=== PATIENT | female | born 1945 | race Caucasian/White ===

== ENCOUNTER → 2017-11-11 | Outpatient (CLI) | END | disposition home or self-care (01) ==

== ENCOUNTER → 2017-12-23 | Outpatient (CLI) | END | disposition home or self-care (01) ==

== ENCOUNTER → 2018-01-20 | Outpatient (CLI) | END | disposition home or self-care (01) ==

== ENCOUNTER → 2018-02-07 | Outpatient (CLI) | END | disposition home or self-care (01) ==

== ENCOUNTER → 2018-02-07 | Outpatient (CLI) | END | disposition home or self-care (01) ==

== ENCOUNTER 2018-02-18 08:00 | Observation (INO) | payer MEDICARE, BC ==
[~2018-02-18] VITALS: Ht 154.9 cm; Wt 80.5 kg
[~2018-02-18 08:00] MED LIST: ACETAMINOPHEN 500 MG TAB PO ONE; CEFAZOLIN 2 GM/50 ML (PMX) 50 ML IVPB ONE; CELECOXIB 200 MG CAP PO ONE; DEXAMETHASONE 4 MG/ML 1 ML INJ IV ONE; LACTATED RINGER'S 1,000 ML IV* SCH; LANSOPRAZOLE 30 MG CAP PO ONE; ONDANSETRON 4 MG INJ IV ONE; TRANEXAMIC ACID 1,000 MG in SOD CHLORIDE 0.9% 100 ML IVPB ONE
[2018-07-21 18:43] VITALS: Ht 154.9 cm; Wt 80.5 kg
[2018-07-26] VITALS (33 sets, daily range): BP systolic 111–152; BP diastolic 51–75; PULSE 80–92; RESP 0–23
[2018-07-26] MEDS ORDERED: TRANEXAMIC ACID 1GM/100ML(PMX) 100 ML IVPB ONE (07:00)
[2018-07-26] MEDS ORDERED: CELECOXIB 200 MG CAP PO ONE (07:00)
[2018-07-26] MEDS ORDERED: CEFAZOLIN 2 GM/50 ML (PMX) 50 ML IVPB ONE (07:00)
[2018-07-26] MEDS ORDERED: ONDANSETRON 4 MG INJ IV ONE (07:00)
[2018-07-26] MEDS ORDERED: LANSOPRAZOLE 30 MG CAP PO ONE (07:00)
[2018-07-26] MEDS ORDERED: ACETAMINOPHEN 500 MG TAB PO ONE (07:00)
[2018-07-26] MEDS ORDERED: DEXAMETHASONE 4 MG/ML 5 ML INJ IV ONE (07:00)
[2018-07-26] MEDS ORDERED: ERGO2000 PO (07:13)
[2018-07-26] MEDS ORDERED: CALC500T11 PO (07:14)
[2018-07-26] MEDS ORDERED: MAGN200T PO (07:14)
[2018-07-26] MEDS ORDERED: ASCO500C7 PO (07:15)
[2018-07-26] MEDS ORDERED: MULTI PO (07:15)
[2018-07-26] MEDS ORDERED: OMEP20CA16 PO (07:16)
[2018-07-26] MEDS ORDERED: THIA250T7 PO (07:16)
[2018-07-26] MEDS ORDERED: PARO10TA57 PO (07:16)
[2018-07-26] MEDS ORDERED: TURM500C9 PO (07:17)
[2018-07-26] MEDS ORDERED: ZOLP5TAB PO (07:18)
[2018-07-26] MEDS ORDERED: ASPI81TA52 PO (07:18)
--- NOTE | 2018-07-26 07:18 | PREAC ---
Date/Time of Note Date/Time of Note DATE: 07/26/18 TIME: 07:17 Anesthesia Eval and Record Evaluation Time Pre-Procedure Interview DATE: 07/26/18 TIME: 07:17 Age 73 Sex female NPO: 8 hrs Preoperative diagnosis right knee osteoarthritis Planned procedure right knee replacement Past Medical History Past Medical History: Includes Cardio: Dyslipidemia Musculoskeletal: Osteoarthritis GI: GERD Heme: Other (thrombocytosis) Surgery & Anesthesia Issues No known issue Meds Anticoagulation: No Beta Hiwot within 24 hr: No Reason Beta Hiwot not given: Pt. not on B-Hiwot Reported Medications Paroxetine Hcl* (Paxil*) 10 Mg Tablet, 10 MG PO DAILY, TAB 07/26/18 Omeprazole* (Omeprazole*) 20 Mg Capsule.dr, 20 MG PO BID, #60 CAP 07/26/18 Thiamine* (Vitamin B-1*) 250 Mg Tablet, 250 MG PO DAILY, TAB 07/26/18 Multivitamins* (Theragran*) 1 Tab Tab, 1 TAB PO DAILY, TAB 07/26/18 Ascorbic Acid* (Vitamin C*) 500 Mg Capsule.sa, 1000 MG PO BID, CAP 07/26/18 Calcium Carbonate (Oysco-500) 500 Mg Tablet, 500 MG PO BID, TAB 07/26/18 Magnesium (Magnesium) 200 Mg Tablet, 600 MG PO DAILY, TAB 07/26/18 Ergocalciferol (Vitamin D2) (VITAMIN D2) 2,000 Unit Tablet, 2000 UNIT PO DAILY, TAB 07/26/18 Current Medications Ropivacaine/ Clonidine/ Epinephrine/ Ketorolac Tromethamine/ Sodium Chloride INTRA-OP INJ ; Start 07/26/18 at 07:00 Cefazolin Sodium/ Dextrose 50 ml @ 100 mls/hr PRE-OP ONCE IVPB ; Start 07/26/18 at 07:00; Stop 07/26/18 at 07:29 Tranexamic Acid 100 ml @ 200 mls/hr PRE-OP ONCE IVPB ; Start 07/26/18 at 07:00; Stop 07/26/18 at 07:29 Tranexamic Acid 100 ml @ 220 mls/hr AT CLOSING ONCE IVPB ; Start 07/26/18 at 07:00; Stop 07/26/18 at 07:27 Acetaminophen 100 ml @ 400 mls/hr OC IVPB Last administered on 07/26/18at 07:01; Admin Dose 400 MLS/HR; Start 07/26/18 at 07:30; Stop 07/26/18 at 07:44 Meds reviewed: Yes Allergies Coded Allergies: No Known Allergy (Verified , 07/26/18) Allergies Reviewed: Yes Labs/Studies Labs Reviewed: Reviewed by anesthesiologist test: N/A Studies: ECG Pre-procedure Exam Last vitals Vital Signs Date Temp Pulse Resp B/P (MAP) Pulse Ox O2 O2 Flow FiO2 Time Delivery Rate 07/26/18 98.1 07:01 07/26/18 84 18 141/75 98 06:40 (97) Airway: Adequate mouth opening, Adequate thyromental dist Mallampati: Mallampati II Teeth: Normal Lung: Normal Heart: Normal ASA Physical Status ASA physical status: 2 Emergency: None Planned Anesthetic General/MAC: LMA Neuraxial: Spinal Planned Pain Management Sub-arachniod narcotics, Parenteral pain med Pre-operative Attestations Prior to commencing anesthesia and surgery, the patient was re-evaluated, there was verification of: *The patient's identity *The results of appropriate recent lab work and preoperative vital signs *The above evaluation not changing prior to induction *Anesthetic plan, risk benefits, alternative and complications discussed with patient/family; questions answered; patient/family understands, accepts and wishes to proceed. LILY WADE MD Jul 26, 2018 07:18
[2018-07-26] MEDS ORDERED: ALPR0.25 PO (07:19)
--- NOTE | 2018-07-26 07:24 | HPN ---
Date/Time of Note Date/Time of Note DATE: 07/26/18 TIME: 07:23 Interval H&P Admission Note Pt. seen H&P reviewed: No system changes Patient denies fever, chills, shortness of breath, chest pain, nausea/vomiting, constipation, diarrhea, numbness, and tingling. MUSCULOSKELETAL: Right lower extremity Skin intact Sensation intact to light touch in a sural, saphenous, deep peroneal, superficial peroneal, medial and lateral plantar nerve distribution. Motor is intact, patient able to dorsiflex and plantarflex ankle and extend and flex great toe. Dorsalis Pedis pulse +2, Brisk capillary refill. Compartments are soft. Calves non-tender to palpation bilaterally. IRWIN ELMORE MD Jul 26, 2018 07:24
[2018-07-26] MEDS ORDERED: SEVOFLURANE 15 MIN ONE (07:30)
[2018-07-26] MEDS ORDERED: ACETAMINOPHEN 1000MG/100ML IV 100 ML IVPB SCH (07:30)
[2018-07-26] MEDS ORDERED: LIDOCAINE 2% (SDV) 5 ML INJ ONE (07:33)
[2018-07-26] MEDS ORDERED: PROPOFOL 20 ML ONE (07:33)
[2018-07-26] MEDS ORDERED: FENTAnyl 50 MCG/ML VIAL ONE (07:34)
[2018-07-26] MEDS ORDERED: MIDAZOLAM 1 MG/ML 2 ML INJ ONE (07:34)
[2018-07-26] MEDS ORDERED: TRANEXAMIC ACID 1GM/100ML(PMX) 100 ML ONE ×2 (07:48→12:12)
[2018-07-26] MEDS ORDERED: CEFAZOLIN 1 GM INJ ONE (07:48)
[2018-07-26] MEDS ORDERED: ONDANSETRON 4 MG INJ ONE (07:54)
[2018-07-26] MEDS ORDERED: DEXAMETHASONE 4 MG/ML 5 ML INJ ONE (07:54)
[2018-07-26] MEDS ORDERED: FAMOTIDINE 20 MG INJ ONE (07:54)
[2018-07-26] MEDS ORDERED: EPHEDrine 25 MG/5 ML SYG ONE (08:09)
[2018-07-26] MEDS: TRANEXAMIC ACID 1GM/100ML(PMX) 100 ML IVPB ONE ×2 (08:32→09:55)
[2018-07-26] MEDS ORDERED: ROPIVACAINE 0.2% 20 ML VIAL ONE (10:44)
[2018-07-26] MEDS ORDERED: ONDANSETRON 4 MG INJ IV PRN (11:00)
[2018-07-26] MEDS ORDERED: PROCHLORPERAZINE 10 MG INJ IV PRN (11:00)
[2018-07-26] MEDS ORDERED: HYDROmorphONE 1 MG/5 ML IV SYRINGE IV PRN ×2 (11:00)
[2018-07-26] MEDS ORDERED: MEPERIDINE 25 MG INJ IV PRN (11:00)
[2018-07-26] MEDS ORDERED: DIPHENHYDRAMINE 50 MG INJ IV PRN ×2 (11:00→11:30)
[2018-07-26] MEDS ORDERED: FENTAnyl 50 MCG/ML VIAL IV PRN (11:00)
[2018-07-26] MEDS ORDERED: LACTATED RINGER'S 1,000 ML IV SCH ×2 (11:14→11:22)
--- NOTE | 2018-07-26 11:19 | PAC ---
Date/Time of Note Date/Time of Note DATE: 07/26/18 TIME: 11:18 Post-Anesthesia Notes Post-Anesthesia Note Last documented vital signs Vital Signs Date Temp Pulse Resp B/P (MAP) Pulse Ox O2 O2 Flow FiO2 Time Delivery Rate 07/26/18 98.1 07:01 07/26/18 84 18 141/75 98 06:40 (97) Activity: WNL Respiratory function: WNL Cardiovascular function: WNL Mental status: Baseline Pain reasonably controlled: Yes Hydration appropriate: Yes Nausea/Vomiting absent: Yes Comments BP: 118/53 HR: 87 RR: 15 T: 98 SaO2: 95% LILY WADE MD Jul 26, 2018 11:19
[2018-07-26] MEDS ORDERED: DOCUSATE SODIUM 100 MG CAP PO ONE (11:30)
[2018-07-26] MEDS ORDERED: KETOROLAC 15 MG INJ IV PRN (11:30)
[2018-07-26] MEDS ORDERED: SENNA/DOCUSATE NA (8.6MG/50MG) TAB PO PRN (11:30)
[2018-07-26] MEDS ORDERED: MAGNESIUM HYDROXIDE 30ML CUP PO PRN (11:30)
[2018-07-26] MEDS ORDERED: NACL 0.9% 3 ML SYG IV SCH (11:30)
[2018-07-26] MEDS ORDERED: HYDROmorphONE 1 MG/ML SYG IV PRN (11:30)
[2018-07-26] MEDS ORDERED: BETHANECHOL 25 MG TAB PO PRN (11:30)
[2018-07-26] MEDS ORDERED: NALOXONE (0.4 MG/ML) INJ IV PRN (11:30)
[2018-07-26] MEDS ORDERED: BISACODYL 10 MG SUPP PR PRN (11:30)
[2018-07-26] MEDS ORDERED: NA PHOSPHATE/BIPHOS 133 ML ENEMA PR PRN (11:30)
[2018-07-26] MEDS ORDERED: oxyCODONE 5 MG TAB PO PRN ×2 (11:30)
--- NOTE | 2018-07-26 12:13 | OPR ---
Date/Time of Note Date/Time of Note DATE: 07/26/18 TIME: 12:02 Operative Report Procedure Date: Jul 26, 2018 Preoperative Diagnosis Right knee osteoarthritis Postoperative Diagnosis As above Operation/Procedure Performed right total knee arthroplasty Intraoperative use of navigation Surgeon see signature line Awake Overnight Monitor Lauri Warren Anesthesia Type: spinal Tourniquet Time: 90 Estimated Blood Loss: 10 - 50 ml's Transfusion none Specimen Hoffa fat pad Grafts/Implants Depuy Sigma Femur: size 2.5 PS Tibia: Size 2.5 Poly insert: size 2.5 PS+, 10 mm thickness Patella: 32mm Complications none Pt Condition Post Procedure: stable Disposition: PACU Procedure Description PREOP DIAGNOSIS: Right knee osteoarthritis POSTOP DIAGNOSIS: Same. SURGICAL PROCEDURE: Right total knee arthroplasty. Intraoperative use of navigation CPT CODE: 06874. INDICATIONS AND CONSENT: The patient is a 73 year-old woman, with an orthopaedic history consistent with progressively worsening knee pain. They have maximized nonoperative measures, which have included activity modification, medicines, intra-articular injections. On physical exam, they have varus alignment, no previous open surgical scars. They have ROM 3120, no gross ligamentous instability. No significant venous stasis or edema. Distally neurovascular intact. They were offered a knee replacement. A lengthy discussion ensued, where the patient was told that if and when the symptoms are intolerable, elective total knee replacement should be considered. The operative procedure was explained using diagrams and or three-dimensional models. The rehabilitation, the potential risks, benefits and alternatives were discussed at length. Specific risks discussed included but were not limited to excessive blood loss and the need for transfusion and therefore the risk of transmissible disease or transfusion reaction, deep infection and the potential need for repetitive debridements, implant removal, long-term antibiotic therapy, possibly requiring deep venous access, extensor mechanism complications, including subluxation or dislocation, disruption of the quadriceps or patellar t endon, fracture of the patella or avulsion of the tibial tuberosity, femoral, tibial or fibular fracture and the need for further surgery for fixation, neurovascular injury with temporary or permanent numbness, tingling, weakness or paralysis, arterial injury requiring surgery including possible amputation, deep venous thrombosis, pulmonary embolism and , persistent pain, weakness, or limp, late aseptic loosening and the need for revision, polyethylene wear- induced osteolysis and related problems, post-operative stiffness requiring closed manipulation, and finally, a wide variety of unanticipated medical problems. The opportunity to ask questions and address any concerns was provided. The patient elected to proceed with TKA. FINDINGS: Extensive and diffuse inflammation of the joint with synovial hypertrophy and synovitis. Significant hemosiderin deposition in the synovium as well as the Hoffa fat pad. Diffuse tricompartmental osteoarthritis with bicompartmental full-thickness cartilage loss. SURGERY IN DETAIL: Patient was taken into the Operating Room, placed supine on the operating table. Preoperatively, they were given weight-based dosing of Ancef and if MRSA positive vancomycin was given in addition. Tourniquet was placed to the right proximal thigh. Regional anesthesia was administered by Anesthesia Department. Right lower extremity was prepped and draped in sterile fashion. Surgical pause was performed, correctly identifying the patient's name, medical record number, diagnoses, surgical procedure, and laterality of procedure. The leg was elevated, exsanguinated with an Esmarch, tourniquet was inflated to 250 for mmHg, remained inflated for 90 minutes, after which it was deflated. An anterior midline incision approximately 15-20 cm in length was made, centered over the patella ending just medial to the tibial tubercle. Skin and subcutaneous tissue sharply dissected down the Armin's fascia superiorly, which was incised in line with skin incision. The quadriceps tendon, medial patellar retinaculum, patellar tendon were visualized. A medial parapatellar arthrotomy was performed. The proximal medial tibia was subperiosteally exposed for a distance of 4 cm from joint line. The deep infrapatellar bursa was incised. The patella was everted and the knee was flexed, while protecting the insertion of patellar tendon. A 3/8-inch curved osteotome was used to enter the semimembranosus bursa at the level of the joint line medially. Medial meniscus was excised at the meniscal- synovial junction. The anterior cruciate ligament was excised. The posterior cruciate ligament was excised with electrocautery from the intercondylar region and a posterior retractor was placed, subluxating the tibia anterolateral to the femur. A hernia was made anterolateral to the lateral meniscus and a right- angle retractor was placed over the anterolateral tibia. A lateral meniscectomy was performed. The inferior lateral geniculate artery was coagulated. The tibia was reduced under the femur. An intramedullary pin was placed for the OrthAlign device. The OrthAlign navigation unit and sensor were calibrated at the back table. The OrthAlign femoral cutting jig was then placed over the central pin, and secured with a medial and lateral pin. The OrthAlign navigation unit and OrthAlign sensor were then attached to the jig. The leg was maneuvered for appropriate capture and calibration. After this was performed, the navigation unit was adjusted for a 0 varus/valgus (neutral mechanical axis) and 2.0-2.5 degree posterior flexion cut. The cutting jig was locked in place. The navigation and sensor unit were then removed. The distal femoral cut was set at 10 mm for the osteotomy . This was then secured with two pins. A distal femoral osteotomy was performed. The OrthAlign femoral jig was then removed. A posterior retractor was placed and an anterolateral retractor was placed on the tibia, subluxating the tibia anterior to the femur. The OrthAlign tibial cutting jig was then applied to the tibia preliminarily with the strap. This was secured with two pins centered over the medial 1/3 of the tibial tubercle. The offset was established proximally at the ACL footprint. This was then matched distally. Registration was then performed, registering the lateral malleolus and the medial malleolus. After this was performed, the malleolar probe was then utilized to help set the appropriate varus/valgus as well as tibial slope. This was then locked into position. The navigation guide and sensor were then removed. The slotted tibial cutting jig was then applied and secured with two pins. A proximal tibia osteotomy was performed. The tibia was then brought to full extension and a 10 mm spacer block was inserted, and felt to be satisfactory extension gap. The knee was flexed again and the tibial alignment guide was then removed. With the knee flexed to 90 degrees a femoral sizing jig was placed on the distal femur and secured, the femur sized to a size 2.5. Due to preoperative varus deformity, this was then set on 3 degrees of empiric external rotation, using the posterior condyles. This was parallel to the epicondylar axis. A size 2.5 4-in-1 femoral cutting block was then secured to the femur with two lock pins and an anterior, posterior condylar cut were performed, followed by an anterior chamfer and a posterior chamfer cut. Cutting block was removed. A 10 mm spacer was then inserted at 90 degrees of flexion and this was symmetric with the extension gap. An intercondylar box osteotomy was performed using the box cutting guide. A trial tibial base plate, size 2.5 with a 10 mm cruciate sacrificing polyethylene, and a trial size 2.5 femur were then inserted and the knee was brought to full extension. The patella was everted and the osteochondral junction was exposed. The patella measured 32 mm in thickness. A patellar osteotomy performed leaving 12 mm remnant patella. Three lug holes were drilled for the 32 diameter patellar button. The knee then underwent range of motion, soft tissue tension and patellar tracking, everything was symmetric balanced. The patella tracked centrally. The rotation of the tibial component was marked on the tibia. On the tibia, the modular base plate hole was created with the appropriate drills and punches at previously marked rotation. Exposed bony surfaces were thoroughly irrigated and dried. Periarticular injection administered. Cement with antibiotics was mixed at the back table. At the appropriate time and consistency cement was placed in the keel and onto the tibial plateau. Cement was finger pressurized. Cement was placed on the backside of the tibial component and along the keel. The tibial component was placed by hand into the keel and was then impacted and extruded cement removed. Cement was applied to exposed bone of the femur, as well as the posterior condylar portion prostheses, and the femoral component was inserted, extruded cement was then removed. The knee was brought to full extension. Cement was applied to the patella, as well as the patellar button, which was clamped into position. Extruded cement was removed. After the cement completely dried, the knee was flexed, the trial polyethylene was removed. Scored cement was removed. A tourniquet was deflated. Hemostasis was obtained. Pulse lavage was used to irrigate and remove any loose debris from posterior knee. The knee was trialed with a 10 mm thick posterior stabilized polyethylene. I compared to previous mentation there was very subtle and slight laxity of the MCL and full extension. Otherwise the knee was balanced. There is no injury or damage to the MCL that could be appreciated. At this time it was felt a stabilized plus insert would help as the MCL was intact and was taught on examination.. A formal size 2.5, 10 mm stabilized plus polyethylene was inserted, confirmed seated and locked. The knee was reduced, hemostasis obtained. Copious amounts of irrigation was used with pulse lavage to remove and loose debris. The arthrotomy was closed with 1 PDS in a [id number], interrupted fashion, subcutaneous tissues irrigated, closed with 2-0 Vicryl in an inverted, interrupted fashion. The skin was closed with josse. A sterile dressing was applied. Sponge, needle and instrument counts were correct at the end of the case. DISPOSITION: Patient transferred to PACU in stable condition. The patient will be weight bearing as tolerated on the operative extremity. PT will begin POD #0 if available. Given the slight MCL laxity in extension the patient will be put in a hinged knee brace to protect the MCL until it fully heals back down to the tibia. She will be weightbearing as tolerated but when she weight bears she needs to wear the brace otherwise she does not need to wear the brace. Range of motion as tolerated. Postoperative AP and lateral of the operative knee will be ordered in PACU. Bilateral knee high SCDs will be worn while admitted. ASA 81mg BID will be given for DVT prophylaxis for 6 weeks. Pain will be controlled with medication. The patient will follow up in clinic in approximately 2 weeks. ESTIMATED BLOOD LOSS: 50 mL. CULTURES: None. PATHOLOGY: Bone, hoffa fat pad IMPLANTS: Depuy Sigma Femur: size 2.5 PS Tibia: Size 2.5 Poly insert: size 2.5 PS+, 10 mm thickness Patella: 32mm NAME OF SURGEONS AND ASSISTANTS: Surgeon: Irwin Saul MD Awake Overnight Monitor: IRWIN Giles MD Jul 26, 2018 12:12
[2018-07-26] MEDS: CEFAZOLIN 2 GM/50 ML (PMX) 50 ML IVPB SCH ×2 (12:20→22:10)
[2018-07-26] MEDS ORDERED: ALPRAZOLAM 0.25 MG TAB PO PRN (13:00)
[2018-07-26] MEDS ORDERED: ZOLPIDEM 5 MG TAB PO PRN (13:00)
--- NOTE | 2018-07-26 13:42 | CONS ---
Assessment/Plan Assessment/Plan Problems: (1) Anxiety disorder Status: Chronic Comment: Cont. xanax prn and zolpidem prn insomnia. 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 paroxetine 10 mg daily. (3) Gastro-esophageal reflux disease without esophagitis Status: Chronic Comment: Cont. PPI bid. (4) Essential thrombocytosis Status: Chronic Comment: Noted. Will apply this knowledge to any CBC done in house. Of note, platelets from outpatient labs not excessively elevated, only in the 550K range. (5) ADRIEL-2 gene mutation Status: Chronic Comment: Noted. (6) Hypertriglyceridemia Status: Chronic Comment: Noted TG level > 450 on outpatient labs. Will defer to primary team to decide if fibrate should be started as outpt. (7) Osteoarthritis of right knee Status: Resolved Comment: per primary team (8) Aftercare following right knee joint replacement surgery Status: Acute Comment: Doing well POD#0. Pain management and PT per primary team. Will raeann tor for any medical issues and treat should they arise. Consultation Date/Type/Reason Admit Date/Time Jul 26, 2018 at 05:39 Date of Consultation: Jul 26, 2018 Type of Consult Medicine Reason for Consultation Medical Management Requesting Provider: IRWIN ELMORE MD Date/Time of Note DATE: 07/26/18 TIME: 13:30 Hx of Present Illness 73 y/o C F w/o h/o anxiety d/o and GERD w/ progressively worsening pain from OA of R knee since arthroscopic surgery 10 y. ago. Lately has been severe enough that she cannot ambulate w/o pain. Came today for scheduled R TKA. Now POD#0 and doing well. Constitutional: no complaints, improved Eyes: no complaints ENT: no complaints Respiratory: no complaints Cardiovascular: no complaints Gastrointestinal: no complaints Genitourinary: no complaints Musculoskeletal: bone/joint pain (R knee) Neurologic: no complaints Past Medical History Medical History: GERD, other (anxiety, diverticulosis/perforation/peritonitis/colostomy, female climacteric state, essential thrombocytosis w/ ADRIEL-2 mutation) Home Meds Reported Medications Alprazolam* (Xanax*) 0.25 Mg Tablet, 0.25 MG PO Q8H PRN for ANXIETY, TAB 07/26/18 Aspirin (Low Dose Aspirin) 81 Mg Tablet.dr, 81 MG PO DAILY, #30 TAB 07/26/18 Zolpidem Tartrate* (Ambien*) 5 Mg Tablet, 2.5 MG PO QHS PRN for INSOMNIA, #30 TAB 07/26/18 Turmeric Root Extract (Turmeric) 500 Mg Capsule, 500 MG PO DAILY, CAP 07/26/18 Paroxetine Hcl* (Paxil*) 10 Mg Tablet, 10 MG PO DAILY, TAB 07/26/18 Omeprazole* (Omeprazole*) 20 Mg Capsule.dr, 20 MG PO BID, #60 CAP 07/26/18 Thiamine* (Vitamin B-1*) 250 Mg Tablet, 250 MG PO DAILY, TAB 07/26/18 Multivitamins* (Theragran*) 1 Tab Tab, 1 TAB PO DAILY, TAB 07/26/18 Ascorbic Acid* (Vitamin C*) 500 Mg Capsule.sa, 1000 MG PO BID, CAP 07/26/18 Calcium Carbonate (Oysco-500) 500 Mg Tablet, 500 MG PO BID, TAB 07/26/18 Magnesium (Magnesium) 200 Mg Tablet, 600 MG PO DAILY, TAB 07/26/18 Ergocalciferol (Vitamin D2) (VITAMIN D2) 2,000 Unit Tablet, 2000 UNIT PO DAILY, TAB 07/26/18 Medications Current Medications Hydromorphone HCl (Dilaudid) 0.2 mg PACU PRN IV MILD PAIN 1-3; Start 07/26/18 at 11:00; Stop 07/26/18 at 15:00 Hydromorphone HCl (Dilaudid) 0.4 mg PACU PRN IV MOD PAIN 4-6; Start 07/26/18 at 11:00; Stop 07/26/18 at 15:00 Fentanyl (Sublimaze) 25 mcg PACU ORDER PRN IV MILD PAIN 1-3; Start 07/26/18 at 11:00; Stop 07/26/18 at 15:00 Ondansetron HCl (Zofran Inj) 4 mg PACU ORDER PRN IV NAUSEA/VOMITING; Start 07/26/18 at 11:00; Stop 07/26/18 at 15:00 Prochlorperazine (Compazine Inj) 5 mg PACU ORDER PRN IV NAUSEA/VOMITING; Start 07/26/18 at 11:00; Stop 07/26/18 at 15:00 Meperidine HCl (Demerol) 25 mg PACU ORDER PRN IV .RIGORS; Start 07/26/18 at 11:00; Stop 07/26/18 at 15:00 Diphenhydramine HCl (Benadryl) 12.5 mg PACU ORDER PRN IV .PRURITUS; Start 07/26/18 at 11:00; Stop 07/26/18 at 15:00 Lactated Ringer's 1,000 ml @ 120 mls/hr Q8H20M IV Last administered on 07/26/18at 11:26; Admin Dose 120 MLS/HR; Start 07/26/18 at 11:22; Stop 07/26/18 at 13:59 Lactated Ringer's 1,000 ml @ 80 mls/hr [id number] IV Last administered on 07/26at 13:05; Admin Dose 80 MLS/HR; Start 07/26/18 at 11:14; Stop 07/26/18 at 14:00 IV Flush (NS 3 ml) 3 ml PER PROTOCOL IV ; Start 07/26/18 at 11:30 Oxycodone HCl (Roxicodone) 15 mg Q4H PRN PO .PAIN; Start 07/26/18 at 11:30 Oxycodone HCl (Roxicodone) 10 mg Q4H PRN PO .PAIN; Start 07/26/18 at 11:30 Oxycodone HCl (Roxicodone) 5 mg Q4H PRN PO .PAIN; Start 07/26/18 at 11:30 Hydromorphone HCl (Dilaudid) 1 mg Q3H PRN IV .BREAKTHROUGH PAIN; Start 07/26/18 at 11:30 Acetaminophen (Tylenol Tab) 1,000 mg Q8 PO ; Start 07/26/18 at 14:00 Ketorolac Tromethamine (Toradol) 15 mg Q6H PRN IV .PAIN; Start 07/26/18 at 11:30 Ondansetron HCl (Zofran Inj) 4 mg Q4H PRN IV NAUSEA/VOMITING; Start 07/27/18 at 11:30 Cefazolin Sodium/ Dextrose 50 ml @ 100 mls/hr Q8H IVPB Last administered on 07/26/18at 12:20; Admin Dose 100 MLS/HR; Start 07/26/18 at 11:30; Stop 07/27/18 at 03:59 Gabapentin (Neurontin) 300 mg QHS PO ; Start 07/26/18 at 21:00 Pantoprazole (Protonix Tab) 40 mg DAILY@06 PO ; Start 07/28/18 at 06:00 Docusate Sodium (Colace) 200 mg BID PO ; Start 07/27/18 at 09:00; Stop 07/30/18 at 08:59 Simethicone (Mylicon) 80 mg TID PRN PO .GAS; Start 07/26/18 at 11:30 Senna/Docusate Sodium (Senokot-S) 2 tab BID PRN PO .CONSTIPATION; Start 07/26/18 at 11:30 Magnesium Hydroxide (Milk Of Mag) 30 ml HS PRN PO .CONSTIPATION; Start 07/26/18 at 11:30 Bisacodyl (Dulcolax Supp) 10 mg DAILY PRN [place] .CONSTIPATION; Start 07/26/18 at 11:30 Sodium Biphosphate/ Sodium Phosphate (Fleet Enema) 133 ml DAILY PRN [place] .CONSTIPATION; Start 07/26/18 at 11:30 Diphenhydramine HCl (Benadryl) 25 mg Q4H PRN IV .ITCHING; Start 07/26/18 at 11:30 Naloxone HCl (Narcan) 0.2 mg Q2M PRN IV .RESP RATE; Start 07/26/18 at 11:30 Bethanechol Chloride (Urecholine) 25 mg URINARY CATH D/C PRN PO UNABLE TO VOID; Start 07/26/18 at 11:30 Aspirin (Halfprin) 81 mg BID PO ; Start 07/27/18 at 09:00 Alprazolam (Xanax) 0.25 mg Q8H PRN PO ANXIETY; Start 07/26/18 at 13:00 Ascorbic Acid (Vitamin C) 1,000 mg BID PO ; Start 07/26/18 at 21:00 Aspirin (Halfprin) 81 mg DAILY PO ; Start 07/27/18 at 09:00 Calcium Carbonate (Oyster Shell Calcium) 1.25 gm BID PO ; Start 07/26/18 at 21:00 Multivitamins Therapeutic (Theragran) 1 tab DAILY PO ; Start 07/27/18 at 09:00 Paroxetine HCl (Paxil) 10 mg DAILY PO ; Start 07/27/18 at 09:00 Zolpidem Tartrate (Ambien) 2.5 mg QHS PRN PO INSOMNIA; Start 07/26/18 at 13:00 Pantoprazole (Protonix Tab) 40 mg BID@,18 PO ; Start 07/26/18 at 18:00 Allergies: Coded Allergies: No Known Allergy (Verified , 07/26/18) Past Surgical History Past Surgical Hx: appendectomy, bowel resection (w/ colostomy and subsequent colostomy takedown), other (hernia repair) Family History Significant Family History: cancer (aunt and cousins), other (ALS in father) Social History b. [place], [place] but raised in [facility] since age 5 m, 1 y. 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 ago) Drug Use: marijuana (edibles daily) Exam/Review of Systems Exam Vitals VS - Last 72 Hours, by Label Date Temp Pulse Resp B/P (MAP) Pulse Ox O2 O2 Flow FiO2 Time Delivery Rate 07/26/18 98.7 86 18 120/57 97 13:08 (78) 07/26/18 99.0 12:41 07/26/18 10 124/56 98 Nasal 3.0 11:54 (78) Cannula 07/26/18 16 133/63 98 Nasal 3.0 11:49 (86) Cannula 07/26/18 13 136/57 98 Nasal 3.0 11:44 (83) Cannula 07/26/18 15 128/51 95 Nasal 3.0 11:39 (76) Cannula 07/26/18 6 134/56 99 Nasal 3.0 11:34 (82) Cannula 07/26/18 14 126/55 92 Nasal 3.0 11:29 (78) Cannula 07/26/18 23 125/62 92 Nasal 3.0 11:24 (83) Cannula 07/26/18 0 111/53 95 Nasal 3.0 11:19 (72) Cannula 07/26/18 5 118/53 96 Mask 8.0 11:14 (74) 07/26/18 20 119/69 96 Mask 8.0 11:09 (86) 07/26/18 98.0 86 16 137/61 98 Mask 8.0 11:03 (86) 07/26/18 98.1 07:01 07/26/18 98.1 84 18 141/75 98 06:40 (97) Vital Signs Date Temp Pulse Resp B/P (MAP) Pulse Ox O2 O2 Flow FiO2 Time Delivery Rate 07/26/18 98.7 86 18 120/57 97 13:08 (78) 07/26/18 Nasal 3.0 11:54 Cannula Constitutional: alert, oriented, obese Psych: no complaints, nl mood/affect Eyes: nl conjunctiva, EOMI, nl lids, nl sclera, PERRL ENMT: nl external ears & nose, nl lips & teeth, mucosa pink and moist Neck: supple, non-tender; No bruits, No masses, No thyromegaly Respiratory: clear to auscultation, normal air movement Cardiovascular: regular rate and rhythm, nl pulses; No edema, No murmurs/extra sounds, No rub Gastrointestinal: soft, nl liver, spleen, non-tender, bowel sounds; No mass, No rebound or guarding Musculoskeletal: nl extremities to inspection Extremities: normal pulses; No cyanosis, No clubbing, No edema Neurological: IRRIGATOR VALVE PIPE II-XII intact, nl mental status, nl speech, nl strength Results Results 24hrs Laboratory Tests Test 07/26/18 11:05 Lab Scanned Report REFERENCE LAB Medications Medication Current Medications Hydromorphone HCl (Dilaudid) 0.2 mg PACU PRN IV MILD PAIN 1-3; Start 07/26/18 at 11:00; Stop 07/26/18 at 15:00 Hydromorphone HCl (Dilaudid) 0.4 mg PACU PRN IV MOD PAIN 4-6; Start 07/26/18 at 11:00; Stop 07/26/18 at 15:00 Fentanyl (Sublimaze) 25 mcg PACU ORDER PRN IV MILD PAIN 1-3; Start 07/26/18 at 11:00; Stop 07/26/18 at 15:00 Ondansetron HCl (Zofran Inj) 4 mg PACU ORDER PRN IV NAUSEA/VOMITING; Start 07/26/18 at 11:00; Stop 07/26/18 at 15:00 Prochlorperazine (Compazine Inj) 5 mg PACU ORDER PRN IV NAUSEA/VOMITING; Start 07/26/18 at 11:00; Stop 07/26/18 at 15:00 Meperidine HCl (Demerol) 25 mg PACU ORDER PRN IV .RIGORS; Start 07/26/18 at 11:00; Stop 07/26/18 at 15:00 Diphenhydramine HCl (Benadryl) 12.5 mg PACU ORDER PRN IV .PRURITUS; Start 07/26/18 at 11:00; Stop 07/26/18 at 15:00 Lactated Ringer's 1,000 ml @ 120 mls/hr Q8H20M IV Last administered on 07/26/18at 11:26; Admin Dose 120 MLS/HR; Start 07/26/18 at 11:22; Stop 07/26/18 at 13:59 Lactated Ringer's 1,000 ml @ 80 mls/hr [id number] IV Last administered on 07/26/18at 13:05; Admin Dose 80 MLS/HR; Start 07/26/18 at 11:14; Stop 07/26/18 at 14:00 IV Flush (NS 3 ml) 3 ml PER PROTOCOL IV ; Start 07/26/18 at 11:30 Oxycodone HCl (Roxicodone) 15 mg Q4H PRN PO .PAIN; Start 07/26/18 at 11:30 Oxycodone HCl (Roxicodone) 10 mg Q4H PRN PO .PAIN; Start 07/26/18 at 11:30 Oxycodone HCl (Roxicodone) 5 mg Q4H PRN PO .PAIN; Start 07/26/18 at 11:30 Hydromorphone HCl (Dilaudid) 1 mg Q3H PRN IV .BREAKTHROUGH PAIN; Start 07/26/18 at 11:30 Acetaminophen (Tylenol Tab) 1,000 mg Q8 PO ; Start 07/26/18 at 14:00 Ketorolac Tromethamine (Toradol) 15 mg Q6H PRN IV .PAIN; Start 07/26/18 at 11:30 Ondansetron HCl (Zofran Inj) 4 mg Q4H PRN IV NAUSEA/VOMITING; Start 07/27/18 at 11:30 Cefazolin Sodium/ Dextrose 50 ml @ 100 mls/hr Q8H IVPB Last administered on 07/26/18at 12:20; Admin Dose 100 MLS/HR; Start 07/26/18 at 11:30; Stop 07/27/18 at 03:59 Gabapentin (Neurontin) 300 mg QHS PO ; Start 07/26/18 at 21:00 Pantoprazole (Protonix Tab) 40 mg DAILY@06 PO ; Start 07/28/18 at 06:00 Docusate Sodium (Colace) 200 mg BID PO ; Start 07/27/18 at 09:00; Stop 07/30/18 at 08:59 Simethicone (Mylicon) 80 mg TID PRN PO .GAS; Start 07/26/18 at 11:30 Senna/Docusate Sodium (Senokot-S) 2 tab BID PRN PO .CONSTIPATION; Start 07/26/18 at 11:30 Magnesium Hydroxide (Milk Of Mag) 30 ml HS PRN PO .CONSTIPATION; Start 07/26/18 at 11:30 Bisacodyl (Dulcolax Supp) 10 mg DAILY PRN [place] .CONSTIPATION; Start 07/26/18 at 11:30 Sodium Biphosphate/ Sodium Phosphate (Fleet Enema) 133 ml DAILY PRN [place] .CONSTIPATION; Start 07/26/18 at 11:30 Diphenhydramine HCl (Benadryl) 25 mg Q4H PRN IV .ITCHING; Start 07/26/18 at 11:30 Naloxone HCl (Narcan) 0.2 mg Q2M PRN IV .RESP RATE; Start 07/26/18 at 11:30 Bethanechol Chloride (Urecholine) 25 mg URINARY CATH D/C PRN PO UNABLE TO VOID; Start 07/26/18 at 11:30 Aspirin (Halfprin) 81 mg BID PO ; Start 07/27/18 at 09:00 Alprazolam (Xanax) 0.25 mg Q8H PRN PO ANXIETY; Start 07/26/18 at 13:00 Ascorbic Acid (Vitamin C) 1,000 mg BID PO ; Start 07/26/18 at 21:00 Aspirin (Halfprin) 81 mg DAILY PO ; Start 07/27/18 at 09:00 Calcium Carbonate (Oyster Shell Calcium) 1.25 gm BID PO ; Start 07/26/18 at 21:00 Multivitamins Therapeutic (Theragran) 1 tab DAILY PO ; Start 07/27/18 at 09:00 Paroxetine HCl (Paxil) 10 mg DAILY PO ; Start 07/27/18 at 09:00 Zolpidem Tartrate (Ambien) 2.5 mg QHS PRN PO INSOMNIA; Start 07/26/18 at 13:00 Pantoprazole (Protonix Tab) 40 mg BID@,18 PO ; Start 07/26/18 at 18:00 KRISTEN DAVIS MD Jul 26, 2018 13:40
[2018-07-26] MEDS: ACETAMINOPHEN 500 MG TAB PO SCH ×2 (14:45→22:10)
[2018-07-26] MEDS: PANTOPRAZOLE (EC) 40 MG TAB PO SCH (18:29)
[2018-07-26] MEDS: oxyCODONE 5 MG TAB PO PRN (18:30)
[2018-07-26] MEDS: CALCIUM CARBONATE 1.25 GM TAB PO SCH (20:26)
[2018-07-26] MEDS: ASCORBIC ACID 500 MG TAB PO SCH (20:27)
[2018-07-26] MEDS ORDERED: GABAPENTIN 300 MG CAP PO SCH (21:00)
[2018-07-27 01:51] VITALS: BP 134/65; PULSE 75; RESP 19
[2018-07-27] MEDS: oxyCODONE 5 MG TAB PO PRN ×2 (04:14→07:57)
[2018-07-27] MEDS: ACETAMINOPHEN 500 MG TAB PO SCH ×2 (05:02→13:54)
[2018-07-27] MEDS: PANTOPRAZOLE (EC) 40 MG TAB PO SCH (05:02)
[2018-07-27] MEDS: CEFAZOLIN 2 GM/50 ML (PMX) 50 ML IVPB SCH (05:02)
[2018-07-27 07:47] VITALS: BP 123/58; PULSE 70; RESP 20
[2018-07-27] MEDS ORDERED: DEXAMETHASONE 10 MG/ML 1 ML INJ IV ONE (08:00)
[2018-07-27] MEDS ORDERED: ASPIRIN (EC) 81 MG TAB PO SCH ×2 (09:00)
[2018-07-27] MEDS ORDERED: DOCUSATE SODIUM 100 MG CAP PO SCH (09:00)
[2018-07-27] MEDS ORDERED: MULTIVITAMINS THERAPEUTIC TAB PO SCH (09:00)
[2018-07-27] MEDS ORDERED: PAROXETINE 10 MG TAB PO SCH (09:00)
[2018-07-27] MEDS: ASCORBIC ACID 500 MG TAB PO SCH (09:21)
[2018-07-27] MEDS: CALCIUM CARBONATE 1.25 GM TAB PO SCH (09:21)
[2018-07-27] MEDS ORDERED: ONDANSETRON 4 MG INJ IV PRN (11:30)
[2018-07-27] MEDS ORDERED: GABA300C16 PO (12:30)
[2018-07-27] MEDS ORDERED: OXYC-481 PO (12:30)
[2018-07-27] MEDS ORDERED: ASPI81TA52 PO (12:30)
--- NOTE | 2018-07-27 12:34 | DS ---
Date/Time of Note Date/Time of Note DATE: 07/27/18 TIME: 12:34 Discharge Summary Admission/Discharge Info Admit Date/Time Jul 26, 2018 at 05:39 Discharge Date/Time Patient Condition: Good Hospital Course POD#1 s/p primary right TKA. A final implantation of total knee arthroplasty the patient's MCL was slightly attenuated with a 1 -2 mm laxity that was not present when trialing. The MCL was intact and taut on intraoperative examination. Therefore she will be put in a post op hinged knee brace for about 4 weeks to protect the MCL as it heals. She is weightbearing as tolerated. She is range of motion as tolerated. She is to wear the hinged knee brace only when weightbearing. -Post op H&H stable -PT/OT -Joints pain control protocol -DVT prophylaxis: SCD's, ASA 81 mg twice daily -Weight bearing status: as tolerated -Post-op XR ordered -Abx: 24h vanc/ancef -Diet: ADAT -Ann: Discontinue -Discharge planning consult Planned Discharge Date: Today Discharge to home with home health Home Meds Reported Medications Alprazolam* (Xanax*) 0.25 Mg Tablet, 0.25 MG PO Q8H PRN for ANXIETY, TAB 07/26/18 Aspirin (Low Dose Aspirin) 81 Mg Tablet.dr, 81 MG PO DAILY, #30 TAB 07/26/18 Zolpidem Tartrate* (Ambien*) 5 Mg Tablet, 2.5 MG PO QHS PRN for INSOMNIA, #30 TAB 07/26/18 Turmeric Root Extract (Turmeric) 500 Mg Capsule, 500 MG PO DAILY, CAP 07/26/18 Paroxetine Hcl* (Paxil*) 10 Mg Tablet, 10 MG PO DAILY, TAB 07/26/18 Omeprazole* (Omeprazole*) 20 Mg Capsule.dr, 20 MG PO BID, #60 CAP 07/26/18 Thiamine* (Vitamin B-1*) 250 Mg Tablet, 250 MG PO DAILY, TAB 07/26/18 Multivitamins* (Theragran*) 1 Tab Tab, 1 TAB PO DAILY, TAB 07/26/18 Ascorbic Acid* (Vitamin C*) 500 Mg Capsule.sa, 1000 MG PO BID, CAP 07/26/18 Calcium Carbonate (Oysco-500) 500 Mg Tablet, 500 MG PO BID, TAB 07/26/18 Magnesium (Magnesium) 200 Mg Tablet, 600 MG PO DAILY, TAB 07/26/18 Ergocalciferol (Vitamin D2) (VITAMIN D2) 2,000 Unit Tablet, 2000 UNIT PO DAILY, TAB 07/26/18 Primary Care Provider Care Physician No Primary Time spent on discharge: < 30 minutes Pending Labs Laboratory Tests Test 07/27/18 04:38 07/27/18 05:00 07/27/18 07:44 White Blood Count 14.2 10^3/ul (4.8-10.8) Red Blood Count 3.86 10^6/ul (4.20-5.40) Hemoglobin 11.6 g/dl (12.0-16.0) Hematocrit 36.3 % (37.0-47.0) Mean Corpuscular 94.0 Volume fl (82.0-101.0) Mean Corpuscular 30.1 pg (29.0-33.0) Hemoglobin Mean Corpuscular 32.0 Hemoglobin Concent g/dl (32.0-37.0) Red Cell 16.6 % (11.5-14.5) Distribution Width Platelet Count 445 10^3/UL (140-415) Mean Platelet 10.2 fl (7.4-10.4) Volume Immature 0.600 Granulocytes % % (0.001-0.429) Neutrophils % 82.4 % (39.0-77.0) Lymphocytes % 9.1 % (15.0-51.0) Monocytes % 7.5 % (0.0-11.0) Eosinophils % 0.2 % (0.0-7.0) Basophils % 0.2 % (0.0-2.0) Nucleated Red Blood 0.0 Cells % /100WBC (0.0-0.0) Immature 0.080 Granulocytes # 10^3/ul (0.0-0.031) Neutrophils # 11.7 10^3/ul (1.6-7.5) Lymphocytes # 1.3 10^3/ul (0.8-2.9) Monocytes # 1.1 10^3/ul (0.3-0.9) Eosinophils # 0.0 10^3/ul (0.0-0.5) Basophils # 0.0 10^3/ul (0.0-0.1) Nucleated Red Blood 0.0 Cells # 10^3/ul (0.0-0.0) Sodium Level 139 mmol/L (135-144) Potassium Level 4.1 mmol/L (3.5-5.1) Chloride Level 106 mmol/L (97-110) Carbon Dioxide 29 mmol/L (21-31) Level Anion Gap 4 (5-13) Blood Urea 15 mg/dl (7-20) Nitrogen Creatinine 0.91 mg/dl (0.44-1.00) Est Glomerular mL/min (>60) Filtrat Rate mL/min Glucose Level 95 mg/dl (70-220) Calcium Level 9.1 mg/dl (8.4-10.2) Urine Color YELLOW (YELLOW) Urine Clarity CLEAR (CLEAR) Urine pH 5.0 (5.0-9.0) Urine Specific 1.013 (1.003-1.030 [place] ) Urine Ketones NEGATIVE mg/dL (NEGATIVE) Urine Nitrite NEGATIVE mg/dL (NEGATIVE) Urine Bilirubin NEGATIVE mg/dL (NEGATIVE) Urine Urobilinogen NEGATIVE mg/dL (NEGATIVE) Urine Leukocyte NEGATIVE Marcela/ul Esterase Urine Hemoglobin NEGATIVE mg/dL (NEGATIVE) Urine Glucose NEGATIVE mg/dL (NEGATIVE) Urine Total NEGATIVE Protein mg/dl (NEGATIVE) Lab Scanned Report REFERENCE LAB [id number] IRWIN ELMORE MD Jul 27, 2018 12:34
--- NOTE | 2018-07-27 12:34 | PN ---
Date/Time of Note Date/Time of Note DATE: 07/27/18 TIME: 12:31 Assessment/Plan Lines/Catheters IV Catheter Type (from Nrsg): Saline Lock Ann in Place (from Nrsg): No Assessment/Plan Chief Complaint/Hosp Course POD#1 s/p primary right TKA. A final implantation of total knee arthroplasty the patient's MCL was slightly attenuated with a 1 -2 mm laxity that was not present when trialing. The MCL was intact and taut on intraoperative examination. Therefore she will be put in a post op hinged knee brace for about 4 weeks to protect the MCL as it heals. She is weightbearing as tolerated. She is range of motion as tolerated. She is to wear the hinged knee brace only when weightbearing. -Post op H&H stable -PT/OT -Joints pain control protocol -DVT prophylaxis: SCD's, ASA 81 mg twice daily -Weight bearing status: as tolerated -Post-op XR ordered -Abx: 24h vanc/ancef -Diet: ADAT -Ann: Discontinue -Discharge planning consult Planned Discharge Date: Today Discharge to home with home health Subjective 24 Hr Interval Summary Patient doing well No acute events overnight Pain is well controlled Exam/Review of Systems Vital Signs Vitals Vital Signs Date Temp Pulse Resp B/P (MAP) Pulse Ox O2 O2 Flow FiO2 Time Delivery Rate 07/27/18 98.9 70 20 123/58 97 Room Air 07:47 (79) 07/26/18 2.0 20:20 Intake and Output 07/26/18 07/26/18 07/27/18 1515:00 23:00 07:00 IntakeIntake Total 2750 ml 500 ml 200 ml OutputOutput Total 1150 ml 800 ml 1650 ml BalanceBalance 1600 ml -300 ml -1450 ml Exam Free Text/Dictation Right lower extremity: Dressing: clean, dry, and intact, no erythema Sensation intact to light touch in a sural, saphenous, deep peroneal, superficial peroneal, medial and lateral plantar nerve distribution. Motor is intact, patient able to dorsiflex and plantarflex ankle and extend and flex great toe. Dorsalis Pedis pulse +2, Brisk capillary refill. Compartments are soft. Calves non-tender to palpation bilaterally. Results Result Diagram: 07/27/18 0438 07/27/18 043 IRWIN ELMORE MD Jul 27, 2018 12:33
[2018-07-27 13:32] VITALS: BP 120/57; PULSE 76; RESP 18
[2018-07-28] MEDS ORDERED: PANTOPRAZOLE (EC) 40 MG TAB PO SCH (06:00)
== END 2018-07-27 15:41 | disposition home or self-care (01) ==
LOC: INTOOBSV 07-26 05:39 → REC 07-26 05:39 → MS1 07-26 12:49 → REC 07-26 12:49 → MS1 07-26 12:49
PROVIDERS: ADMIT Orthopaedic Surgery Adult Reconstructive Orthopaedic Surgery; ATTEND Orthopaedic Surgery Adult Reconstructive Orthopaedic Surgery
DX: M17.11 Unilateral primary osteoarthritis, right knee (principal); F41.9 Anxiety disorder, unspecified; K21.9 Gastro-esophageal reflux disease without esophagitis
CPT/HCPCS: 27447; 73560; 80048; 81003; 85025; 86850; 86900; 86901; 87081; 87086; 88304; 88311; 97110; 97116; 97161; 97165; C1713; G0378; J0131; J0171; J0690; J0735; J1100; J1170; J1885; J2250; J2405; J2795; J3010; L1820; L1832; 99217; J7120

== ENCOUNTER → 2018-06-06 | Outpatient (CLI) | payer MEDICARE, BC ==
--- NOTE | 2018-06-06 10:25 | CONS ---
Consult Date/Type/Reason Admit Date/Time Initial Consult Date Date/Time of Note DATE: 06/06/18 TIME: 10:22 Subjective 73-year-old female follows up today to discuss right total knee arthroplasty. She was previously scheduled at the end of last January. However she had a new diagnosis of essential thrombocytosis and was recently started hydroxyurea. At that time her platelets were significantly elevated above 800,000. At that time she was not given medical clearance secondary to increased risk of stroke per the primary care physician. She has been seeing her primary care physician and he now believes she is medically optimized and is acceptable risk. Patient denies any change in her symptoms except the severity has increased. She started taking narcotic pain medication 1-2 oxycodone a day for pain control in addition to Advil. Denies numbness and tingling Objective Exam Weight: 163 pounds Height: 5 foot 2 inches BMI: 29.8 Temperature: 98.0 Heart Rate: 84 Blood Pressure: 140/70 Respiratory Rate: 12 Exam General: Awake, alert, in no acute distress, pleasant and cooperative Heart: regular rhythm Lungs: breathing comfortably, no tachypnea or dyspnea Musculoskeletal: Right Knee This is a well developed female who is alert, oriented times three and in no apparent distress. Skin is intact over the right knee as well as the lower extremity with no abr asions, lacerations, or ulcerations. Observation of the patient's gait reveals an antalgic gait with Varus thrust. Frontal plane alignment is varus. There is pain on palpation of medial and lateral joint line. The patient demonstrates grinding anteriorly with ROM. Range of motion: 0 extension to approximately 130 degrees of flexion. Collateral ligament testing reveals no instability with varus or valgus stress at 0 and 30 degrees of flexion. Negative Bashir's and negative posterior drawer. Neurovascularly intact with 5/5 EHL/tibialis anterior/gastroc. Sensation intact to light touch in a sural, saphenous, deep peroneal, superficial peroneal, medial and lateral plantar nerve distribution. Palpable, symmetric dorsalis pedis and posterior tibial pulses in both lower extremities. Hip examination normal. Assessment/Plan Hospital Course (Demo Recall) The patient has osteoarthritis of the right knee involving primarily the medial compartment(s). The patient has failed conservative treatment. The patient's most recent labs were reviewed. Her most recent labs were reviewed which were on April 20, 2018. Her platelet count has decreased from her original 900,00 to 697,000. Her hemoglobin and white blood cell count have also dropped slightly but are well within normal limits and are 14.9 and 8.7 respectively. Medical Clearance pending ----- A lengthy discussion ensued, where the patient was told that if and when the symptoms are intolerable, elective total knee replacement should be considered. The operative procedure was explained using diagrams and or three-dimensional models. The rehabilitation, the potential risks, benefits and alternatives were discussed at length. Specific risks discussed included but were not limited to excessive blood loss and the need for transfusion and therefore the risk of transmissible disease or transfusion reaction, deep infection and the potential need for repetitive debridements, implant removal, long-term antibiotic therapy, possibly requiring deep venous access, extensor mechanism complications, including subluxation or dislocation, disruption of the quadriceps or patellar tendon, fracture of the patella or avulsion of the tibial tuberosity, femoral, tibial or fibular fracture and the need for further surgery for fixation, neurovascular injury with temporary or permanent numbness, tingling, weakness or paralysis, arterial injury requiring surgery including possible amputation, deep venous thrombosis, pulmonary embolism and , persistent pain, weakness, or limp, late aseptic loosening and the need for revision, polyethylene wear- induced osteolysis and related problems, post-operative stiffness requiring closed manipulation, and finally, a wide variety of unanticipated medical problems. The opportunity to ask questions and address any concerns was provided. The patient would like to proceed with scheduling. Face to Face Evaluation for Home Health Care: This is to certify that after date of planned surgery patient will be in need of intermittent jail care, physical therapy and/or occupational therapy as patient will be home bound. This patient is under my care and I have authorized the services on this plan of care and will periodically review the plan. Plan: Right TKA Follow-up for preoperative appointment IRWIN ELMORE MD Jun 06, 2018 10:24
== END | disposition home or self-care (01) ==
LOC: HKI 09:24
PROVIDERS: ATTEND Orthopaedic Surgery Adult Reconstructive Orthopaedic Surgery
DX: M17.11 Unilateral primary osteoarthritis, right knee (principal); D47.3 Essential (hemorrhagic) thrombocythemia
CPT/HCPCS: G0463

== ENCOUNTER → 2018-07-21 | Outpatient (CLI) | payer MEDICARE, BC ==
[~2018-07-21] MED LIST changes: -ACETAMINOPHEN 500 MG TAB PO ONE; +ALPR0.25 PO; +ASCO500C7 PO; +ASPI81TA52 PO; +CALC500T11 PO; -CEFAZOLIN 2 GM/50 ML (PMX) 50 ML IVPB ONE; -CELECOXIB 200 MG CAP PO ONE; -DEXAMETHASONE 4 MG/ML 1 ML INJ IV ONE; +ERGO2000 PO; +GABA300C16 PO; -LACTATED RINGER'S 1,000 ML IV* SCH; -LANSOPRAZOLE 30 MG CAP PO ONE; +MAGN200T PO; +MULTI PO; +OMEP20CA16 PO; -ONDANSETRON 4 MG INJ IV ONE; +OXYC-481 PO; +PARO10TA57 PO; +THIA250T7 PO; -TRANEXAMIC ACID 1,000 MG in SOD CHLORIDE 0.9% 100 ML IVPB ONE; +TURM500C9 PO; +ZOLP5TAB PO
--- NOTE | 2018-07-21 18:12 | CONS ---
Consult Date/Type/Reason Admit Date/Time Initial Consult Date Date/Time of Note DATE: 07/21/18 TIME: 18:08 Subjective 73-year-old female is here today with osteoarthritis of the right knee. The patient has been having problems for the last several years. The patient rates the pain 8/10. The patient has failed conservative therapy. The patient is here for a preoperative visit. Objective Exam General: Awake, alert, in no acute distress, pleasant and cooperative Heart: regular rhythm Lungs: breathing comfortably, no tachypnea or dyspnea Musculoskeletal: Right Knee This is a well developed female who is alert, oriented times three and in no apparent distress. Skin is intact over the right knee as well as the lower extremity with no abrasions, lacerations, or ulcerations. Observation of the patient's gait reveals an antalgic gait with Varus thrust. Frontal plane alignment is varus. There is pain on palpation of medial and lateral joint line. The patient demonstrates grinding anteriorly with ROM. Range of motion: 0 extension to approximately 130 degrees of flexion. Collateral ligament testing reveals no instability with varus or valgus stress at 0 and 30 degrees of flexion. Negative Bashir's and negative posterior drawer. Neurovascularly intact with 5/5 EHL/tibialis anterior/gastroc. Sensation intact to light touch in a sural, saphenous, deep peroneal, superficial peroneal, medial and lateral plantar nerve distribution. Palpable, symmetric dorsalis pedis and posterior tibial pulses in both lower extremities. Hip examination normal. Assessment/Plan Hospital Course (Demo Recall) The patient has osteoarthritis of the right knee involving primarily the medial compartment(s). The patient has failed conservative treatment. Medical Clearance obtained ----- A lengthy discussion ensued, where the patient was told that if and when the symptoms are intolerable, elective total knee replacement should be considered. The operative procedure was explained using diagrams and or three-dimensional models. The rehabilitation, the potential risks, benefits and alternatives were discussed at length. Specific risks discussed included but were not limited to excessive blood loss and the need for transfusion and therefore the risk of transmissible disease or transfusion reaction, deep infection and the potential need for repetitive debridements, implant removal, long-term antibiotic therapy, possibly requiring deep venous access, extensor mechanism complications, including subluxation or dislocation, disruption of the quadriceps or patellar tendon, fracture of the patella or avulsion of the tibial tuberosity, femoral, tibial or fibular fracture and the need for further surgery for fixation, neurovascular injury with temporary or permanent numbness, tingling, weakness or paralysis, arterial injury requiring surgery including possible amputation, deep venous thrombosis, pulmonary embolism and , persistent pain, weakness, or limp, late aseptic loosening and the need for revision, polyethylene wear- induced osteolysis and related problems, post-operative stiffness requiring closed manipulation, and finally, a wide variety of unanticipated medical problems. The opportunity to ask questions and address any concerns was provided. The patient would like to proceed with scheduling. Face to Face Evaluation for Home Health Care: This is to certify that after date of planned surgery patient will be in need of intermittent group home care, physical therapy and/or occupational therapy as patient will be home bound. This patient is under my care and I have authorized the services on this plan of care and will periodically review the plan. Plan: Right TKA VTE risk stratification: Slightly elevated secondary to essential thrombocythemia VTE prophylaxis: Aspirin 81 mg twice daily Diabetes management: None Pain control: Standard Telemetry: None MRSA: Pending IRWIN ELMORE MD July 21, 2018 18:12
--- NOTE | 2018-07-21 21:33 | RADRPT ---
PROCEDURE: XR Knees. CLINICAL INDICATION: Bilateral knee pain. TECHNIQUE: Total of eight views. Weightbearing frontal, oblique, and lateral views of the both kne es. Patellar views of both knees. COMPARISON: Bilateral knee radiographs dated 11/11/2017 FINDINGS: There is no fracture or dislocation. The soft tissues are normal. There is no joint effusion. Articular surfaces are intact. There are moderate degenerative changes of the right knee with medial joint compartment narrowing, osteophytes, and subchondral sclerosis. There is no lytic or blastic lesion. There is no radiopaque foreign body. IMPRESSION: 1. Moderate degenerative changes of the right knee predominately involving the medial joint compartm ent. 2. Otherwise unremarkable images of both knees. 3. No significant change from the 11/11/2017 study. RPTAT: QQ .Oren Joseph MD, Date Time Electronically viewed and signed by .Oren Joseph MD, on 07/21/2018 21:32 .R/
== END | disposition home or self-care (01) ==
LOC: HKI 13:32
PROVIDERS: ATTEND Orthopaedic Surgery Adult Reconstructive Orthopaedic Surgery
DX: M17.11 Unilateral primary osteoarthritis, right knee (principal)
CPT/HCPCS: 73564; G0463

== ENCOUNTER → 2018-08-10 | Outpatient (CLI) | payer MEDICARE, BC ==
--- NOTE | 2018-08-10 13:20 | CONS ---
Consult Date/Type/Reason Admit Date/Time Initial Consult Date Date/Time of Note DATE: 08/10/18 TIME: 13:13 Subjective DOS: 07/26/2018 Procedure: Right TKA 2 weeks s/p right TKA and synovectomy who returns today for follow up. The patient is doing well overall. Pain is moderate, but improving. She continues to wear the hinged knee brace as instructed while weightbearing. She has been performing range of motion exercises. She has been doing well with physical therapy. Denies F/C. Denies N/T. Denies any drainage from the incision. Narcotic Pain medication: Oxycodone 5 mg 2 tablets every 6-8 hours Gait Aids: Walker Pain better than before surgery: Not yet Pleased with outcome. Objective Vitals Temperature: 98.4 Heart Rate: 82 Blood Pressure: 165/77 Exam General: Alert, oriented x3. No Acute Distress. Heart: Regular rate and rhythm. Lungs: No respiratory distress. No accessory muscle use. Right lower Extremity: Incision clean, dry, intact. No skin breakdown, no surrounding erythema. Sensation intact to light touch in a sural, saphenous, deep peroneal, superficial peroneal, medial and lateral plantar nerve distribution. Motor is intact, patient able to dorsiflex and plantarflex ankle and extend and flex great toe. Dorsalis Pedis pulse +2, Brisk capillary refill. Compartments are soft. ROM: Extension: 0 Flexion: 90 Varus/ Valgus Stability: Stable in extension, flexion, and throughout range of motion A/P Stability: Stable Gait: Moderate pace. Slightly antalgic. Walker and unlocked hinged knee brace for gait aid. Results/Medications Home Meds Active Scripts Oxycodone Hcl* (IR) (Roxicodone*) 5 Mg Tab, 5-10 MG PO Q6H PRN for .PAIN, #90 TAB Prov:IRWIN ELMORE MD 07/27/18 Gabapentin* (Gabapentin*) 300 Mg Capsule, 300 MG PO QHS, #30 CAP Prov:IRWIN ELMORE MD 07/27/18 Aspirin (Low Dose Aspirin) 81 Mg Tablet.dr, 81 MG PO BID, #84 TAB Prov:IRWIN ELMORE MD 07/27/18 Reported Medications Alprazolam* (Xanax*) 0.25 Mg Tablet, 0.25 MG PO Q8H PRN for ANXIETY, TAB 07/26/18 Zolpidem Tartrate* (Ambien*) 5 Mg Tablet, 2.5 MG PO QHS PRN for INSOMNIA, #30 TAB 07/26/18 Turmeric Root Extract (Turmeric) 500 Mg Capsule, 500 MG PO DAILY, CAP 07/26/18 Paroxetine Hcl* (Paxil*) 10 Mg Tablet, 10 MG PO DAILY, TAB 07/26/18 Omeprazole* (Omeprazole*) 20 Mg Capsule.dr, 20 MG PO BID, #60 CAP 07/26/18 Thiamine* (Vitamin B-1*) 250 Mg Tablet, 250 MG PO DAILY, TAB 07/26/18 Multivitamins* (Theragran*) 1 Tab Tab, 1 TAB PO DAILY, TAB 07/26/18 Ascorbic Acid* (Vitamin C*) 500 Mg Capsule.sa, 1000 MG PO BID, CAP 07/26/18 Calcium Carbonate (Oysco-500) 500 Mg Tablet, 500 MG PO BID, TAB 07/26/18 Magnesium (Magnesium) 200 Mg Tablet, 600 MG PO DAILY, TAB 07/26/18 Ergocalciferol (Vitamin D2) (VITAMIN D2) 2,000 Unit Tablet, 2000 UNIT PO DAILY, TAB 07/26/18 Imaging Xrays obtained in clinic today and personally reviewed by myself: Bilateral AP and merchant views and a dedicated lateral of the right knee demonstrates right knee s/p TKA. Components in good position and alignment. No signs of wear, osteolysis, loosening, component failure, or fracture. No acute complications. Assessment/Plan Hospital Course (Demo Recall) 73-year-old female doing well 2 weeks s/p right TKA. The patient was placed in a postoperative hinged knee brace for a grade 1 MCL injury at the end of surgery. During surgery the knee was very well-balanced while trialing. When inserting final poly-there was some stretching of the MCL which resulted in subtle MCL laxity. The patient has been wearing the brace as instructed. She is to continue to wear the brace for another 4 weeks with a hinged completely unlocked. This is being treated as a grade 1 MCL injury. - Continue hinged knee brace as instructed - Refilled oxycodone 5 mg 60 tablets. Patient instructed this is the last refill - DVT Prophylaxis: Aspirin 81 mg twice daily x4 more weeks - FU 4 weeks for repeat clinical and radiographic exam - Antibiotic dental prophylaxis for any cleaning or procedure IRWIN ELMORE MD Aug 10, 2018 13:20
--- NOTE | 2018-08-10 23:04 | RADRPT ---
PROCEDURE: XR Knees. CLINICAL INDICATION: Bilateral knee pain. TECHNIQUE: Total of six views. Frontal, oblique, and lateral views of both knees. COMPARISON: 07/26/2018. FINDINGS: On the right side, there is a total knee arthroplasty which appears satisfactory with no fracture, di slocation, or loosening. Right anterior skin josse are noted. On the left side, there is no fracture or dislocation. Articular surfaces are intact. There is no lyt ic or blastic lesion. Left knee articular surfaces are intact. IMPRESSION: 1. Total right knee arthroplasty which appears satisfactory. 2. Unremarkable appearance of the left knee. RPTAT: QQ .Oren Joseph MD, MD Date Time Electronically viewed and signed by .Oren Joseph MD, MD on 08/10/2018 23:04 .R/
== END | disposition home or self-care (01) ==
LOC: HKI 10:28
PROVIDERS: ATTEND Orthopaedic Surgery Adult Reconstructive Orthopaedic Surgery
DX: Z47.1 Aftercare following joint replacement surgery (principal); Z96.651 Presence of right artificial knee joint